=== PATIENT | female | born 2000 | race Caucasian/White ===

== ENCOUNTER 2022-07-14 20:39 | Emergency (ER) | payer MEDICAID, OTHER ==
[~2022-07-14] VITALS: Ht 162 cm; Wt 54.7 kg
[2022-07-14 20:45] VITALS: BP 126/80
--- NOTE | 2022-07-14 20:57 | ED General ---
General Chief Complaint: OB > 20 WEEKS Stated Complaint: OB,VOMITING,HEADACHE Nursing Triage Note: patient states preg. 15 weeks. states headache and vomitting. tried tylenol, vomitted it up. History of Present Illness Date Seen by Provider: Jul 14, 2022 Time Seen by Provider: 20:50 Initial Comments 22-year-old female who is a primigravida, with PMH of migraine headaches, is here with complaints of migraine headache and nausea and vomiting which began today morning. Patient had breakfast but she has been vomiting all day and has not been able to keep down any water and is also associated with not eating all day. Patient took her vitamins in the morning denies fever and chills, shortness of breath, pain, diarrhea Allergies and Home Medications Allergies Coded Allergies: No Known Drug Allergies (Unverified , 07/14/22) Patient Home Medication List Home Medication List Reviewed: Yes Review of Systems Review of Systems Constitutional: no symptoms reported EENTM: no symptoms reported Respiratory: no symptoms reported Cardiovascular: no symptoms reported Gastrointestinal: loss of appetite, nausea, vomiting Genitourinary: no symptoms reported Musculoskeletal: no symptoms reported Skin: no symptoms reported Psychiatric/Neurological: Headache Hematologic/Lymphatic: No Symptoms Reported Immunological/Allergic: no symptoms reported Physical Exam Vital Signs Vital Signs - First Documented 07/14/22 20:45 Temp 35.9 Pulse 84 Resp 20 B/P (MAP) 126/80 (95) Pulse Ox 99 O2 Delivery Room Air Capillary Refill : Less Than 3 Seconds Height, Weight, BMI Height: '" Weight: lbs. oz. kg; 20.00 BMI Method: General Appearance: Mild Distress, Thin HEENT: PERRL/EOMI, Normal ENT Inspection Neck: Full Range of Motion, Normal Inspection Respiratory: Lungs Clear, Normal Breath Sounds Cardiovascular: Regular Rate, Rhythm Gastrointestinal: Normal Bowel Sounds, Non Tender, Soft Back: No CVA Tenderness Extremity: Normal Range of Motion Neurologic/Psychiatric: Alert, Oriented x3, No Motor/Sensory Deficits Skin: Normal Color Progress/Results/Core Measures Suspected Sepsis SIRS Temperature: Pulse: 84 Respiratory Rate: 20 Blood Pressure 126 /80 Mean: 95 Results/Orders My Orders Orders - REID MURCIA MD Ed Iv/Invasive Line Start (07/14/22 20:59) Ns Iv 1000 Ml (Sodium Chloride 0.9%) (07/14/22 21:00) Ondansetron Injection (Zofran Injectio (07/14/22 21:00) Diphenhydramine Injection (Benadryl Inje (07/14/22 21:00) Acetaminophen Tablet (Tylenol Tablet) (07/14/22 21:15) Diphenhydramine Injection (Benadryl Inje (07/14/22 21:06) Ondansetron Injection (Zofran Injectio (07/14/22 21:06) Ns Iv 1000 Ml (Sodium Chloride 0.9%) (07/14/22 21:06) Rx-Ondansetron Po (Rx-Zofran Po) (07/14/22 21:45) Medications Given in ED Current Medications Medications Dose Ordered Sig/Natali Route Start Time Stop Time Status Last Admin Dose Admin Ondansetron HCl 4 mg ONCE ONCE IVP 07/14/22 21:00 07/14/22 21:07 DC 07/14/22 21:10 4 MG Ondansetron HCl 4 mg STK-MED ONCE .ROUTE 07/14/22 21:06 07/14/22 21:09 DC 07/14/22 21:11 4 MG Vital Signs/I&O 07/14/22 20:45 Temp 35.9 Pulse 84 Resp 20 B/P (MAP) 126/80 (95) Pulse Ox 99 O2 Delivery Room Air Capillary Refill : Less Than 3 Seconds Blood Pressure Mean: 95 Progress Note : Progress Note 1. MIGRAINE IN WITH VOMITING/ PO INTOLERANCE: - NS IVF bolus/ Zofran 4mg iv / Benadryl iv/ Tylenol 1gm STAT. Pt's symptoms resolved - Informed pt on newer studies done on Tylenol use in showed 20% higher risk of autism and a 30% higher risk of ADHD for children who had prolonged exposure to acetaminophen during development. Short term use, of less than 8 days, or single use does not produce these results. Pt is informed and agrees to have Tylenol at this time. - Advised pt to make sure she is eating mini meals throughout the day to prevent nausea - Advised good hydration - Prescription for Zofran as needed for nausea and vomiting - Follow up with OB within 7 days. Call to make appointment. -The patient was seen in the ED, and treated appropriately to presentation at a specific point in time. Patient is informed that there is a possibility that disease and illness can evolve and change in acuity rapidly or slowly after patient is discharged from the ER. Precautionary advice given to the patient for immediate return to ER if symptoms worsen or do not resolve, and to seek emergency care sooner rather than later. Pt also advised on the importance of PCP follow up and compliance with management and follow up plan with PCP and/or specialist, as this is part of the management plan. Pt verbally expressed understanding. Departure Impression Primary Impression: Migraine Qualified Codes: G43.909 - Migraine, unspecified, not intractable, without status migrainosus Additional Impression: Nausea and vomiting in Disposition: HOME, SELF-CARE Condition: Improved Departure-Patient Inst. Patient Instructions: Nausea and Vomiting of , Migraines in Adults, Home Headache Remedies Add. Discharge Instructions: - Advised to eat mini meals throughout the day to prevent nausea - Advised good hydration - Prescription for Zofran as needed for nausea and vomiting - Continue vitamins. - Follow up with OB within 7 days. Call to make appointment. All discharge instructions reviewed with patient and/or family. Voiced understanding. Scripts Ondansetron (Ondansetron Odt) 4 Mg Tab.rapdis 4 MG SL Q6H PRN for NAUSEA/VOMITING for 3 Days, #6 TAB Prov: REID MURCIA MD 07/14/22 REID MURCIA MD Jul 14, 2022 20:57
[2022-07-14] MEDS ORDERED: NS IV 1000 ML 1,000 ML IV SCH (21:00)
[2022-07-14] MEDS ORDERED: diphenhydrAMINE 50 MG/ML INJ (BENADRYL) IV STA (21:00)
[2022-07-14] MEDS ORDERED: ONDANSETRON 4 MG/2 ML (SDV) Z0FRAN IVP ONE (21:00)
[2022-07-14] MEDS ORDERED: NS IV 1000 ML 1,000 ML ONE (21:06)
[2022-07-14] MEDS ORDERED: ONDANSETRON 4 MG/2 ML (SDV) Z0FRAN ONE (21:06)
[2022-07-14] MEDS ORDERED: diphenhydrAMINE 50 MG/ML INJ (BENADRYL) ONE (21:06)
[2022-07-14] MEDS ORDERED: ACETAMINOPHEN 500 MG TAB (TYLENOL) PO ONE (21:15)
[2022-07-14] MEDS ORDERED: RX-ONDANSETRON 4 MG ODT (ZOFRAN) PPK #4 PO PRN (21:45)
[2022-07-14] MEDS ORDERED: ONDA4TAB11 SL (22:01)
== END 2022-07-14 22:11 | disposition home or self-care (01) ==
LOC: ER FS 20:41
DX: O99.352 Diseases of the nervous system complicating pregnancy, second trimester (principal); G43.909 Migraine, unspecified, not intractable, without status migrainosus; Z28.310 Unvaccinated for COVID-19; Z3A.15 15 weeks gestation of pregnancy

== ENCOUNTER 2022-10-30 07:15 | Outpatient (CLI) | payer OTHER, MEDICAID ==
[~2022-10-30] VITALS: Ht 160 cm; Wt 68.8 kg
[~2022-10-30 07:15] MED LIST: ONDA4TAB11 SL
[2022-10-30 07:40] VITALS: BP 118/67
[2022-10-30] MEDS ORDERED: PREN-37 PO (08:10)
[2022-10-30 08:12] VITALS: BP 118/67
[2022-10-30 08:13] LABS: CLARITY,URINE BLOODY; COLOR,URINE RED
[2022-10-30 08:14] LABS: GLUCOSE, URINE (UA) NEGATIVE (NEGATIVE); KETONES,URINE NEGATIVE (NEGATIVE); NITRITE,URINE NEGATIVE (NEGATIVE); PROTEIN,URINE 3+ (NEGATIVE)
[2022-10-30 08:15] LABS: BACTERIA,URINE FEW /HPF; BILIRUBIN,URINE 2+ (NEGATIVE); LEUKOCYTE ESTERASE ,URINE 2+ (NEGATIVE); RBC,URINE TNTC /HPF
[2022-10-30] MEDS ORDERED: cefTRIAXone 500 MG VIAL IV/IM IM ONE (08:30)
[2022-10-30] MEDS ORDERED: LIDOCAINE 1% INJ 20 ML VIAL INJ ONE (08:30)
[2022-10-30] MEDS ORDERED: LIDOCAINE 1% INJ 10 ML VIAL ONE (09:29)
[2022-10-30] MEDS ORDERED: CEFD300C3 PO (10:34)
--- NOTE | 2022-10-30 11:53 | Diagnostic Imaging Report ---
INDICATION: Vaginal bleeding. 30 weeks . TECHNIQUE: Multiple real-time grayscale images were obtained over the gravid uterus. COMPARISON: None FINDINGS: Single live intrauterine gestation is visualized in cephalic presentation. heart tones measure 125 bpm. The placenta is anterior and not low lying. The STEPHANIE is normal measuring 9.1 cm. The cervix is closed and measures 3.9 cm in length. The kidneys, bladder, stomach, brain, four-chamber heart, three-vessel cord, spine, and cord insertion are visualized and have a normal appearance. Views of the adnexa demonstrate no evidence of mass or fluid. Biometrical measurements are as follows: Biparietal 7.52 cm, age 30 weeks 2 days. Head circumference 27.35 cm, age 30 weeks 0 days. Abdominal circumference 25.85 cm, age 30 weeks 1 days. Femur length 6.27 cm, age 32 weeks 4 days. Sonographic estimate age: 30 weeks 6 days. Sonographic estimated date of delivery: 01/02/23. heart rate: 125 beats per minute. number: 1 of 1. IMPRESSION: 1. Single live intrauterine gestation measuring 30 weeks 6 days and estimated due date of 01/02/2023. These are within range clinical dates. No acute sonographic abnormalities are identified. Dictated by: Dictated on workstation # [id number]
--- NOTE | 2022-11-02 08:53 | Physician Query-Final Dx ---
LINUS,11/02/22 0853: Clinic Account Progress/Dx Physician Query: Please give diagnosis Please include # weeks gestation Date of Service Oct 30, 2022 at 07:15 MADELINE MITCHELL MD 11/23/22 1114: Clinic Account Progress/Dx DIAGNOSIS: Diagnosis Third Trimester 30 week gestation Vaginal bleeding in LINUS,MarNov 02, 2022 08:53 MADELINE MITCHELL MD Nov 23, 2022 11:14
== END 2022-10-30 12:10 | disposition home or self-care (01) ==
LOC: LDRP 07:15 → WSo 07:15
PROVIDERS: ATTEND Family Medicine
DX: O46.93 Antepartum hemorrhage, unspecified, third trimester (principal); Z3A.30 30 weeks gestation of pregnancy
CPT/HCPCS: 76805; 81000; 87088; 96372; G0463; 99213

== ENCOUNTER 2023-01-06 18:02 | Inpatient (IN) | payer OTHER, MEDICAID ==
[~2023-01-06] VITALS: Ht 160 cm; Wt 57.3 kg
[~2023-01-06 18:02] MED LIST changes: +CEFD300C3 PO; +PREN-37 PO
--- OUTSIDE RECORDS SUMMARY | 2023-01-06 18:07 | XMS REPORT ---
Author Author [facility] ter of [facility] ter of [place] Address Unknown Phone Unavailable Care Team Providers Care Geoduck Diver Name Role Phone AYUSH VERNON Unavailable PROBLEMS Type Condition ICD9-CM Code MCM97-FT Code Onset Dates Condition Status W/U Status Risk SNOMED Code Notes Problem Seasonal allergic rhinitis due to pollen J30.1 confirmed [id number] Problem Dysmenorrhea N94.6 confirmed [id number] Problem Abnormal menses N92.6 confirmed [id number] ALLERGIES No Known Allergies ENCOUNTERS from 2001 to 2022-08-01 Encounter Location Date Provider Diagnosis [facility] [address] [id number] [address] July, AYUSH VERNON UTI symptoms R39.9 ; Abnormal menses N92.6 and Complicated UTI (urinary tract infection) N39.0 SOCIAL HISTORY Sex Assigned At : Social History Observation Description Sex Assigned At Unknown Alcohol Screen (Audit-C) Question Answer Notes Did you have a drink containing alcohol in the p ast year? No Points 0 Interpretation Negative Cessation Question Answer Notes Date Tobacco Cessation Provided: 05/12/2022 Sexual History Question Answer Notes Had sex in the past 12 months (vaginal, oral, or anal)? Yes Last menstrual period 05/04/2022 Have you ever had a Sexually transmitted disease ? No with Men only Use protection? No PHQ2 Question Answer Notes In the last 2 weeks, how oft en have you had little interest or pleasure in doing things? Not at all In the last 2 weeks, how oft en have you been feeling down, depressed, or hopeless? Not at all Total PHQ2 Score 0 Tobacco use other than smoking: Question Answer Notes Are you an other tobacco user? Yes REASON FOR REFERRAL No Information VITAL SIGNS Height 63.5 in July, Height-cm 161.29 cm July, Weight 119 lbs July, Weight-kg 53.98 kg July, Temperature 98.5 degrees Fahrenheit July, Heart Rate 85 bpm July, Respiratory Rate 18 bpm July, Oximetry 98 % July, BMI 20.75 kg/m2 July, Blood pressure systolic 121 mmHg July, Blood pressure diastolic 70 mmHg July, MEDICATIONS Medication SIG (Take, Route, Fr equency, Duration) Notes Start Date End Date Status Vitamin B-6 100 MG 1 tablet Orally Once a day Active Phenergan 25 MG/ML Inject 25 mg (1 ml) Intramuscularly one time for 1 days May, Active Doxylamine Succinate Active 28-0.8 MG 1 tablet Orally Once a day Active REASON FOR VISIT lower right flank/hip pain, no known injury, lower abdominal pain, loss of appetite, burning and pain while urinating, frequent urination x3 days. Patient has taken one dose of Ibuprofen for symptoms.Suraj MA MEDICAL (GENERAL) HISTORY Type Description Date Medical History seasonal allergies MENTAL STATUS No Information ASSESSMENTS Encounter Date Diagnosis Assessment Notes Treatment Notes Treatment Clinical Notes July, UTI symptoms (ICD-10 - R39.9) Treating based on PE & urine results. Culture to follow. July, Abnormal menses (ICD-10 - N92.6) Negative UPT. July, Complicated UTI (urinary tract infection) (ICD-10 - N39.0) Treating for complicated UTI given reports of nausea & CVA tenderness on PE. Medications as prescribed, rest as able, push fluids, call/return if symptoms worsen or do not improve. Adult UTI: 1. Avoid bubble baths. Voiding after sexual intercourse for adult females will assist to flush potential bacteria from the urinary tract. Proper bathroom hygein wiping front to bacl. Maintain proper hydration with lots of water daily avoiding sodas as able. Pushing fluids helps to maintain hydration and flush urinary system. PLAN OF TREATMENT Treatment Notes Assessment Notes Clinical Notes UTI symptoms Treating based on PE & urine results. Culture to follow. Abnormal menses Negative UPT. Complicated UTI (urinary tra ct infection) Treating for complicated UTI given reports of nausea & CVA tenderness on PE. Medications as prescribed, rest as able, push fluids, call/return if symptoms worsen or do not improve. Adult UTI: 1. Avoid bubble baths. Voiding after sexual intercourse for adult females will assist to flush potential bacteria from the urinary tract. Proper bathroom hygein wiping front to bacl. Maintain proper hydration with lots of water daily avoiding sodas as able. Pushing fluids helps to maintain hydration and flush urinary system. Next Appt Details if not improving or regular follow up with pcp Reason: Provider Name:MADELINE RAMIREZJOSIE, 2 023-05-15 04:00:00 PM, [address] [place], [address], Insurance Providers Payer Name Payer Address Payer Phone Insured Name Patient Relationship to Insured Coverage Start Date Coverage End Date Subscriber Number Group Number [employer] [address] [address] [facility] [id number] Josselyn Rubin Self - patient is the insured 2 [id number] [employer] [address] [facility] [address] Josselyn Rubin Self - patient is the insured [id number] MEDICATIONS ADMINISTERED Medication Instructions Date of Administration Dosag e Promethazine HCl May, 25 mg
--- OUTSIDE RECORDS SUMMARY | 2023-01-06 18:07 | XMS REPORT ---
Author Author [facility] ter of [facility] ter of [facility] Address Unknown Phone Unavailable Care Team Providers Care Patient Financial Counselor Name Role Phone AYUSH VERNON Unavailable PROBLEMS ALLERGIES No Known Allergies ENCOUNTERS from 2001 to 2022-09-30 SOCIAL HISTORY No smoking Hx information available REASON FOR REFERRAL No Information VITAL SIGNS MEDICATIONS REASON FOR VISIT MEDICAL (GENERAL) HISTORY MENTAL STATUS ASSESSMENTS PLAN OF TREATMENT Insurance Providers MEDICATIONS ADMINISTERED
[2023-01-06 19:24] VITALS: BP 126/77
[2023-01-06 19:28] LABS: BASOPHILS % (AUTO) 0 % (0-10); EOSINOPHILS % (AUTO) 0 % (0-10); HEMATOCRIT 37 % (35-52); HEMOGLOBIN 12.7 g/dL (11.5-16.0); LYMPHOCYTES # (AUTO) 1.9 10^3/uL (1.0-4.0); LYMPHOCYTES % (AUTO) 20 % (12-44); MEAN CORPUSCULAR HEMOGLOBIN 31 pg (25-34); MEAN CORPUSCULAR HGB CONC 35 g/dL (32-36); MEAN CORPUSCULAR VOLUME 89 fL (80-99); MEAN PLATELET VOLUME 11.3 fL (9.0-12.2); MONOCYTES # (AUTO) 0.6 10^3/uL (0.0-1.0); MONOCYTES % (AUTO) 6 % (0-12); NEUTROPHILS # (AUTO) 7.1 10^3/uL (1.8-7.8); NEUTROPHILS % (AUTO) 73 % (42-75); PLATELET COUNT 200 10^3/uL (130-400); WHITE BLOOD COUNT 9.8 10^3/uL (4.3-11.0)
[2023-01-06] MEDS ORDERED: LACTATED RINGERS 1,000 ML 500 ML IV PRN (19:30)
[2023-01-06] MEDS ORDERED: LIDOCAINE 2% w/EPI 1:200,000 20 ML VIAL INJ PRN (19:30)
[2023-01-06] MEDS ORDERED: MINERAL OIL 30 ML UDC TOP PRN (19:30)
[2023-01-06] MEDS ORDERED: TERBUTALINE INJ 1 MG/ML (BRETHINE) AMP SC PRN (19:45)
[2023-01-06] MEDS ORDERED: NS IV 500 ML 500 ML IV SCH (19:45)
[2023-01-06] MEDS: D5 LR 1,000 ML IV SOLN 1,000 ML IV SCH (19:54)
[2023-01-06 20:05] LABS: AMORPHOUS SEDIMENT,UR FEW AMOR PHOSPHATE /LPF; BACTERIA,URINE FEW /HPF; BILIRUBIN,URINE NEGATIVE (NEGATIVE); CLARITY,URINE CLEAR; COLOR,URINE YELLOW; GLUCOSE, URINE (UA) NEGATIVE (NEGATIVE); KETONES,URINE NEGATIVE (NEGATIVE); LEUKOCYTE ESTERASE ,URINE 1+ (NEGATIVE); NITRITE,URINE NEGATIVE (NEGATIVE); PROTEIN,URINE NEGATIVE (NEGATIVE); RBC,URINE 0-2 /HPF; SQUAMOUS EPITHELIAL CELL,UR >50 /HPF
[2023-01-06] MEDS ORDERED: CATHETER FLUSH 10 ML SYR IV SCH (22:00)
[2023-01-06 23:55] VITALS: BP 114/57
[2023-01-07] VITALS (24 sets, daily range): BP systolic 95–140; BP diastolic 51–92
[2023-01-07] MEDS: D5 LR 1,000 ML IV SOLN 1,000 ML IV SCH (03:37)
[2023-01-07] MEDS ORDERED: BUTORPHANOL INJ 2 MG/ML VIAL IV PRN ×2 (03:45→08:00)
[2023-01-07] MEDS ORDERED: BUTORPHANOL INJ 2 MG/ML VIAL ONE (03:50)
[2023-01-07] MEDS ORDERED: ONDANSETRON INJECTION 4 MG/2 ML (SDV) ONE ×2 (03:59→13:06)
[2023-01-07] MEDS ORDERED: ONDANSETRON INJECTION 4 MG/2 ML (SDV) IVP ONE (04:00)
[2023-01-07] MEDS ORDERED: fentaNYL 2 mcg/ml BUPIVA 0.125 100 ML ONE (09:55)
[2023-01-07] MEDS ORDERED: fentaNYL INJECTION 100 MCG/2 ML VIAL ONE (10:20)
[2023-01-07] MEDS ORDERED: BUPIVACAINE 0.25% 10 ML VIAL ONE (10:20)
[2023-01-07] MEDS ORDERED: ONDANSETRON INJECTION 4 MG/2 ML (SDV) IV PRN (10:30)
[2023-01-07] MEDS ORDERED: fentaNYL 2 mcg/ml BUPIVA 0.125 100 ML EPI SCH (10:30)
[2023-01-07] MEDS ORDERED: CATHETER FLUSH 10 ML SYR IV PRN (10:30)
[2023-01-07] MEDS ORDERED: NALOXONE 0.4 MG/ML 1 ML VIAL IV PRN ×2 (10:30→13:00)
[2023-01-07] MEDS ORDERED: LACTATED RINGERS 1,000 ML 1,000 ML IV ONE (10:30)
[2023-01-07] MEDS ORDERED: diphenhydrAMINE INJ 50 MG/ML VIAL IV PRN (10:30)
[2023-01-07] MEDS ORDERED: CITRIC ACID/SODIUM CITRATE ORAL SOLN 30 ML ONE (12:05)
[2023-01-07] MEDS ORDERED: METOCLOPRAMIDE INJ 10 MG/2 ML ONE (12:05)
[2023-01-07] MEDS ORDERED: FAMOTIDINE INJ 20MG/2ML VIAL ONE (12:06)
[2023-01-07] MEDS ORDERED: LIDOCAINE PF 2% 5 ML VIAL ONE ×3 (12:11→13:09)
[2023-01-07] MEDS ORDERED: NS (IVPB) 50 ML 50 ML ONE (12:19)
[2023-01-07] MEDS ORDERED: ceFAZolin INJECTION 2,000 MG ONE (12:19)
[2023-01-07] MEDS ORDERED: KETAMINE 100 MG/ML 5 ML VIAL ONE (12:25)
[2023-01-07] MEDS ORDERED: KETAMINE 50 MG/5 ML SYRINGE ONE (12:25)
--- NOTE | 2023-01-07 12:59 | Labor Progress Note ---
Labor Progress Note Labor Progress Note Date Seen by Provider: Jan 07, 2023 Time Seen by Provider: 11:30 Subjective: Pt denies complaints. Objective: Cervical exam: /-2 Consistency: soft Position: Anterior Presentation: Vertex heart tones: 120 beats per minute, moderate variability, reactive Tocometer: 4 ctx/10 minutes Assessment/Plan: Neelam Carney is a 22 /Para 1/0 ,Gestational Age 40w2d here for induction of labor. Patient of Dr. Borrego's being induced, received one dose of cytotec last night and has been regis well since, recently got epidural, ready for AROM. See timeline below: 1132: AROM done, heart tones 120s at time of rupture. 1135: I returned to room, heart tones difficult to trace, but sounded to be in the 60s 1137: Picked up heart tones in 120-130s 1140: Scalp lead placed and heart rate initially high, but rapidly dropped, had deceleration from 60-100 for about 3.5 minutes, then recoved to 120s with good variability 1146: Called and notified Cigarette Catcher concrete buster operator about recurrent decelerations, currently reassuring but concerning if persistent recurrent decelerations 1150: Recurrent deceleration to 80s for 2 minutes with contraction, recovered to 120s with moderate variability 1156: Recurrent deceleration to carlos enrique of 60s, lasted 2.5 minutes with contraction, then recovered to 120s with moderate variability. 1158: Repeat cervical exam by me, remains /-2, no prolapsed cord. 1203: Discussed again with Cigarette Catcher concrete buster operator, currently with recurrent deceleration to 70s for 3 minutes, up to 110 for about 1 min then down to 70 to 80 again with slow return over a minute to 120s, again with contraction, at this time decided to proceed with emergent . 1209: To OR. Vitals - Labs Vital Signs - I&O Vital Signs Date Time Temp Pulse Resp B/P (MAP) Pulse Ox O2 Delivery O2 Flow Rate FiO2 01/07/23 10:56 74 18 115/73 (87) 96 Room Air 01/07/23 10:52 66 18 106/70 (82) 98 Room Air 01/07/23 10:47 82 18 114/69 (84) 98 Room Air 01/07/23 10:44 52 18 121/70 (87) 97 Room Air 10/12/23 10:42 49 18 128/65 (86) 97 Room Air 01/07/23 10:37 67 18 139/85 (103) Room Air 01/07/23 10:34 66 18 139/88 (105) 97 Room Air 01/07/23 10:32 71 18 140/81 (100) Room Air 01/07/23 10:29 66 18 127/82 (97) 98 Room Air 01/07/23 03:40 36.2 66 18 130/88 (102) 100 Room Air 01/06/23 23:55 36.5 59 18 114/57 (76) 97 Room Air 01/06/23 19:24 36.5 89 16 97 Room Air I & O 01/07/23 07:00 Intake Total 1470 ml Balance 1470 ml Labs Laboratory Tests 01/06/23 18:15: Urine Color YELLOW, Urine Clarity CLEAR, Urine pH 7.0, Urine Specific Victoria 1.020, Urine Protein NEGATIVE, Urine Glucose (UA) NEGATIVE, Urine Ketones NEGATIVE, Urine Nitrite NEGATIVE, Urine Bilirubin NEGATIVE, Urine Urobilinogen 0.2, Urine Leukocyte Esterase 1+H, Urine RBC (Auto) NEGATIVE, Urine RBC 0-2, Urine WBC 2-5, Urine Squamous Epithelial Cells >50H, Urine Crystals PRESENTH, Urine Amorphous Sediment FEW BREONNA PHOSPHATEH, Urine Bacteria FEWH, Urine Casts NONE, Urine Mucus MODERATEH, Urine Culture Indicated NO 01/06/23 18:40: White Blood Count 9.8, Red Blood Count 4.11, Hemoglobin 12.7, Hematocrit 37, Mean Corpuscular Volume 89, Mean Corpuscular Hemoglobin 31, Mean Corpuscular Hemoglobin Concent 35, Red Cell Distribution Width 12.3, Platelet Count 200, Mean Platelet Volume 11.3, Immature Granulocyte % (Auto) 1, Neutrophils (%) (Auto) 73, Lymphocytes (%) (Auto) 20, Monocytes (%) (Auto) 6, Eosinophils (%) (Auto) 0, Basophils (%) (Auto) 0, Neutrophils # (Auto) 7.1, Lymphocytes # (Auto) 1.9, Monocytes # (Auto) 0.6, Eosinophils # (Auto) 0.0, Basophils # (Auto) 0.0, Immature Granulocyte # (Auto) 0.1, Syphilis Total Antibody Negative MANDY SOMERS MD Jan 07, 2023 12:59
[2023-01-07] MEDS ORDERED: MEASLES, MUMPS, RUBELLA VACCINE (MMR) SC SCH (13:00)
[2023-01-07] MEDS ORDERED: OXYTOCIN DRIP PRE-MIX 500 ML IV SCH (13:00)
[2023-01-07] MEDS ORDERED: ONDANSETRON INJECTION 4 MG/2 ML (SDV) IVP PRN (13:00)
[2023-01-07] MEDS ORDERED: Tetanus/Diphtheria/Pertussis (Acell) ADULT Vaccine 0.5 ML IM SCH (13:00)
[2023-01-07] MEDS ORDERED: IBUP-844 PO (13:03)
[2023-01-07] MEDS ORDERED: DOCU100C37 PO (13:03)
[2023-01-07] MEDS ORDERED: ACHD5005 PO (13:03)
--- NOTE | 2023-01-07 13:03 | Discharge Inst-Women's Service ---
Discharge Inst-Women's Serv Depart Medication/Instructions New, Converted or Re-Newed RX: Transmitted to Pharmacy Final Diagnosis POD 2 PLTCS Problems Reviewed?: Yes Consults/Follow Up Additional Follow Up: Yes Orders/Referrals Dr. Castellanos in 7-10 days and in 6 weeks Activity Activity: Activity as Tolerated Driving Instructions: No Driving for 1 Week NO SMOKING: NO SMOKING Nothing Inside Vagina: No Douching, No [place], No Tampons Diet Discharge Diet: No Restrictions Symptoms to Report to : Bleeding Excessive, Pain Increased, Fever Over 101 Degrees F, Vaginal Bleeding Increase, Questions/Concerns For Any Problems or Questions: Contact Your Physician Skin/Wound Care Infection Signs and Symptoms: Increased Redness, Foul Odor of Wound, Increased Drainage, Skin Itchy or Has a Rash, Increased Swelling, Temperature Above 101 F Operative Area Clean and Dry: Keep Incision Clean/Dry Stitches/[place]/Dermabond: Dermabond, Care of Stitches Bathing Instructions: DELMAR Aden DO Jan 07, 2023 13:03
[2023-01-07] MEDS ORDERED: proPOfol INJECTION 200 MG/20 ML VIAL IV ONE (13:04)
[2023-01-07] MEDS ORDERED: SUCCINYLCHOLINE INJ 20 MG/1 ML 10 ML VIAL ONE (13:04)
[2023-01-07] MEDS ORDERED: BUPIVACAINE 0.5% 30 ML VIAL ONE (13:09)
--- NOTE | 2023-01-07 13:13 | Diagnostic Imaging Report ---
INDICATION: Abdominal pain. FINDINGS: The bowel gas pattern is nonspecific. There is a partially imaged wire-like foreign body overlying the mid epigastrium. This is of uncertain etiology. This may be external to the patient. There are no abnormal abdominal calcifications. The osseous structures are unremarkable. IMPRESSION: Nonspecific bowel gas pattern. Nonspecific wire-like foreign body overlying the mid epigastrium. Again, it is uncertain if this is within the patient or external to the patient. Recommend clinical correlation. Dictated by: Dictated on workstation # [id number]
[2023-01-07] MEDS: KETOROLAC INJ 30 MG/ML VIAL IV SCH ×2 (13:37→19:46)
[2023-01-07] MEDS ORDERED: METOCLOPRAMIDE INJ 10 MG/2 ML IV ONE (14:45)
[2023-01-07] MEDS ORDERED: CITRIC ACID/SODIUM CITRATE ORAL SOLN 30 ML PO ONE (14:45)
[2023-01-07] MEDS ORDERED: LACTATED RINGERS 1,000 ML 1,000 ML IV PRN (14:45)
[2023-01-07] MEDS ORDERED: FAMOTIDINE INJ 20MG/2ML VIAL IV ONE (14:45)
--- NOTE | 2023-01-07 18:52 | OPERATIVE REPORT ---
PREOPERATIVE DIAGNOSES: 1. A 22-year-old G1, P0 at 40 weeks gestation. 2. Acute distress and intolerance of labor. POSTOPERATIVE DIAGNOSES: 1. A 22-year-old G1, P0 at 40 weeks gestation. 2. Acute distress and intolerance of labor. PROCEDURE: Emergency primary low-transverse section. SURGEON: John Castellanos DO ANESTHESIA: Epidural, which was bolused with IV ketamine given as well. ESTIMATED BLOOD LOSS: 800 mL FLUID: 900 mL of lactated Ringer's solution. URINE OUTPUT: Urine is 150 mL clear at end of procedure. FINDINGS: A live female infant, weight pending, Apgars of 9 and 9. Grossly normal appearing uterus, bilateral fallopian tubes and ovaries. SPECIMEN SENT: Placenta. INDICATIONS FOR PROCEDURE: I was contacted urgently by Dr. Mary Carter for acute distress of an induction of labor she had for postdates. I was told that the heart rate was in the 70s-80s and she was taken urgently back to the room hours as I arrived. She was being prepped, consent had been obtained and she was agreeable to proceed with the procedure. heart rate was still noted to be in the 90s. I then tested anesthesia and proceeded with making a low transverse incision with a knife and carried underlying fascia using Bovie cautery. The fascial incision was extended laterally using traction. The midline of the rectus muscles are dissected bluntly using traction. I then entered the peritoneum, bluntly and extended using blunt traction. Yasir ring retractor was placed in the peritoneal incision, which offers excellent lateral sidewall retraction. I identified lower uterine segment, was found to be thinned out and make a low transverse incision to the vesicouterine peritoneum and bluntly dissected off the lower uterine segment, creating a bladder flap. I then proceeded my myotomy until membranes were visualized, at which point I extended uterine incision using gentle traction. The infant was found in vertex presentation. With gentle fundal pressure, the infant's head was elevated up the incision where the nares and oropharynx were bulb suctioned. Anterior and posterior shoulders were delivered. The infant was brought to the operative field where cords were clamped and cut and infant was handed off to waiting Dr. Carter and Dr. Borrego who are attending the delivery. Cord blood was collected. Three-vessel cord intact placenta was delivered spontaneously thereafter. IV Pitocin was initiated to facilitate uterine contraction. Uterine fundus confirmed by manual massage. The uterus was then exteriorized and cleared of all endometrial clots and debris. I then proceeded with closing the uterine incision using 0 Vicryl suture in a running locked fashion. Second layer of imbricating 0 Monocryl was placed. Excellent hemostasis was noted after doing this. I then placed the uterus back in the pelvis and copiously irrigated the pelvis using normal saline. Once again, there was no active bleeding noted from any of my dissection planes. I placed Interceed antiadhesive over my low transverse incision. I then removed the Yasir ring retractor and then proceeded with closing the peritoneum using 3-0 Vicryl suture in a running fashion. Rectus muscles were reapproximated using 3-0 Vicryl suture in interrupted fashion. The fascia was reapproximated using 0 Vicryl suture in a running fashion and the skin reapproximated using 4-0 Monocryl in a running subcuticular. Dermabond was applied. Incision, sterile dressing with adhesive white tape. The patient tolerated the procedure well and sent to recovery area in stable condition. Lap and sponge count was not done prior to the procedure and instrument count was not done as well; therefore, flat plate x-ray was found to be negative after the procedure was completed for any type of retained laps or instruments. Two grams of Ancef were given intraoperatively for infection prophylaxis. Job ID: [id number] DocumentID: [id number] Dictated Date: 01/07/2023 12:58:35 Program Engagement Director Date: 01/07/2023 18:49:00 Dictated By: DO DOC SOSA
[2023-01-07] MEDS: METOCLOPRAMIDE 10 MG TABLET PO SCH (19:22)
[2023-01-07] MEDS: DOCUSATE SODIUM 100 MG CAPSULE PO SCH (19:47)
[2023-01-07] MEDS: HYDROcodone/ACETAMINOPHEN 5 MG/325 MG TABLET PO PRN (22:08)
[2023-01-08] MEDS: METOCLOPRAMIDE 10 MG TABLET PO SCH ×4 (00:40→18:31)
[2023-01-08] MEDS: KETOROLAC INJ 30 MG/ML VIAL IV SCH ×2 (02:12→10:46)
[2023-01-08 03:54] VITALS: BP 121/73
[2023-01-08] MEDS: HYDROcodone/ACETAMINOPHEN 5 MG/325 MG TABLET PO PRN ×4 (03:55→23:07)
[2023-01-08 06:11] LABS: BASOPHILS % (AUTO) 0 % (0-10); EOSINOPHILS % (AUTO) 0 % (0-10); HEMATOCRIT 27 % (35-52); LYMPHOCYTES # (AUTO) 1.3 10^3/uL (1.0-4.0); LYMPHOCYTES % (AUTO) 13 % (12-44); MEAN CORPUSCULAR HEMOGLOBIN 31 pg (25-34); MEAN CORPUSCULAR HGB CONC 34 g/dL (32-36); MEAN CORPUSCULAR VOLUME 90 fL (80-99); MEAN PLATELET VOLUME 11.2 fL (9.0-12.2); MONOCYTES # (AUTO) 0.8 10^3/uL (0.0-1.0); MONOCYTES % (AUTO) 7 % (0-12); NEUTROPHILS # (AUTO) 8.4 10^3/uL (1.8-7.8); NEUTROPHILS % (AUTO) 79 % (42-75); PLATELET COUNT 153 10^3/uL (130-400); WHITE BLOOD COUNT 10.6 10^3/uL (4.3-11.0)
--- NOTE | 2023-01-08 07:48 | Postpartum Progress Note ---
REMEDIOS ARGUETA MD,RESIDENT 01/08/23 0748: Post Op Post-operative Day #1 Subjective: Patient is without complaints. Ambulating, voiding after yang removed. Tolerating a regular diet without nausea or vomiting. Normal lochia. Pain is well controlled with oral pain medications. Passing flatus. [] feeding. [] Objective: Physical Exam: General - Alert and oriented, no apparent distress Abdomen - Soft, appropriately tender to palpation, non-distended, fundus firm at umbilicus Incision - clean, dry and intact; no erythema or induration, no drainage Extremities - no edema, negative Ting's bilaterally Assessment: post-operative day # 2, status post STAT primary for distress. Recovering well, hemodynamically stable Plan: Routine post-operative care. Encourage breast feeding. Encourage ambulation. VTE prophylaxis: SCDs. Ferrous sulfate supplementation. Plan for discharge POD #2 Vitals - Labs Vital Signs - I&O Vital Signs Date Time Temp Pulse Resp B/P (MAP) Pulse Ox O2 Delivery O2 Flow Rate FiO2 01/08/23 03:54 36.4 62 18 121/73 (89) 97 Room Air 01/07/23 23:34 36.2 56 18 118/64 (82) 96 Room Air 01/07/23 20:00 36.9 66 18 110/69 (83) 97 Room Air 01/07/23 16:20 37.7 81 18 132/71 (91) 97 Room Air 01/07/23 14:10 37.4 87 18 133/68 (89) 98 Room Air 01/07/23 14:00 37.5 20 134/92 (106) 99 Room Air 01/07/23 14:00 Room Air 01/07/23 14:00 Room Air 01/07/23 13:50 20 123/61 (81) 98 Room Air 01/07/23 13:40 Room Air 01/07/23 13:40 20 136/76 (96) 99 Room Air 01/07/23 13:30 22 125/85 (98) 100 Room Air 01/07/23 13:25 Room Air 01/07/23 13:15 17 138/89 (105) 100 Room Air 01/07/23 13:09 36.2 16 133/80 (97) 100 Room Air 01/07/23 13:09 Room Air 01/07/23 12:02 51 95/51 (66) 100 Room Air 01/07/23 11:42 59 140/85 (103) 99 Room Air 01/07/23 11:26 57 119/76 (90) 99 Room Air 01/07/23 11:06 57 109/58 (75) 95 Room Air 01/07/23 10:56 74 18 115/73 (87) 96 Room Air 01/07/23 10:52 66 18 106/70 (82) 98 Room Air 01/07/23 10:47 82 18 114/69 (84) 98 Room Air 01/07/23 10:44 52 18 121/70 (87) 97 Room Air 01/07/23 10:42 49 18 128/65 (86) 97 Room Air 01/07/23 10:37 67 18 139/85 (103) Room Air 01/07/23 10:34 66 18 139/88 (105) 97 Room Air 01/07/23 10:32 71 18 140/81 (100) Room Air 01/07/23 10:29 66 18 127/82 (97) 98 Room Air I & O 01/08/23 07:00 Intake Total 1300 ml Output Total 1025 ml Balance 275 ml Labs Laboratory Tests 01/08/23 05:32: White Blood Count 10.6, Red Blood Count 2.93L, Hemoglobin 9.0#L, Hematocrit 27L, Mean Corpuscular Volume 90, Mean Corpuscular Hemoglobin 31, Mean Corpuscular Hemoglobin Concent 34, Red Cell Distribution Width 12.5, Platelet Count 153, Mean Platelet Volume 11.2, Immature Granulocyte % (Auto) 1, Neutrophils (%) (Auto) 79H, Lymphocytes (%) (Auto) 13, Monocytes (%) (Auto) 7, Eosinophils (%) (Auto) 0, Basophils (%) (Auto) 0, Neutrophils # (Auto) 8.4H, Lymphocytes # (Auto) 1.3, Monocytes # (Auto) 0.8, Eosinophils # (Auto) 0.0, Basophils # (Auto) 0.0, Immature Granulocyte # (Auto) 0.1 DELMAR ALBERTS DO 01/08/23 0813: Post Op Diagnosis: Acute blood loss anemia I personally performed the garcia portions of the visit, discussed case with resident and concur with resident documentation of history, physical exam, assessment and treatment plan unless otherwise noted. REMEDIOS ARGUETA MD,RESIDENT Jan 08, 2023 07:48 DELMAR ALBERTS DO Jan 08, 2023 08:13
--- NOTE | 2023-01-08 10:03 | Anesthesia-Regional Post-Op ---
Regional Patient Condition Mental Status: Alert, Oriented x3 Circulation: Same as Pre-Op Headache: Absent Sensation: Full Recovery Motor Block: Absent Post Op Complications Complications None Follow Up Care/Instructions Patient Instructions None needed. Anesthesia/Patient Condition Patient is doing well, does C/O some pain which is to be expected, stable vital signs, no apparent adverse anesthesia problems. No complications reported per nursing. MUKUL MCKEON DO Jan 08, 2023 10:03
[2023-01-08] MEDS ORDERED: OXYTOCIN DRIP PRE-MIX 1,000 ML IV ONE (10:30)
[2023-01-08 10:45] VITALS: BP 123/71
[2023-01-08] MEDS: CATHETER FLUSH 10 ML SYR IV SCH ×2 (10:45→19:45)
[2023-01-08] MEDS: DOCUSATE SODIUM 100 MG CAPSULE PO SCH ×2 (10:46→20:10)
[2023-01-08 12:00] VITALS: BP 123/82
[2023-01-08] MEDS: IBUPROFEN 600 MG TABLET PO SCH ×2 (16:50→23:07)
[2023-01-08 16:52] VITALS: BP 125/79
[2023-01-08 23:06] VITALS: BP 120/74
[2023-01-09] MEDS: METOCLOPRAMIDE 10 MG TABLET PO SCH ×3 (00:30→11:30)
[2023-01-09 04:56] VITALS: BP 108/69
[2023-01-09] MEDS: IBUPROFEN 600 MG TABLET PO SCH ×2 (04:56→11:29)
--- NOTE | 2023-01-09 07:01 | Discharge Summary ---
REMEDIOS HUNG MD,RESIDENT 01/09/23 0701: Discharge Summary Hospital Course Problems Reviewed?: Yes Hospital Course Date of Admission: Jan 06, 2023 at 18:02 Admission Diagnosis : Family Physician/Provider: Alina Borrego MD Date of Discharge: 01/09/23 Discharge Diagnosis: Primary Hospital Course: Pt admitted for IOL at 40w2d. Received one dose of cytotec and AROM completed. Pt requested epidural for pain control. Shortly after AROM and epidural placement, FHT demonstrated distress with prolonged decels to a rate of around 70. The decision was made to undergo a STAT for the safety of mom and baby. Dr. Castellanos completed the primary resulting in a live term female. Minimal bleeding occurred operatively and Pt remained stable throughout her hospital stay. Stable for discharge on POD #2. Labs and Pending Lab Test: Home Meds Active Docusate Sodium 100 Mg Capsule 100 Mg PO BID PRN Hydrocodone-Acetamin 5-325 mg (Hydrocodone/Acetaminophen) 5 Mg-325 Mg Tablet 1-2 Ea PO Q6HR PRN Ibu (Ibuprofen) 600 Mg Tablet 600 Mg PO Q6H Cefdinir 300 Mg Capsule 300 Mg PO BID 5 Days Reported Tablet ( Vit/Iron Fumarate/FA) 27 Mg Iron-800 Mcg Tablet 1 Each PO DAILY Patient Discharge Instructions Keep surgical incision clean and dry. Follow-up in [address] Castellanos for incision check. Follow-up in 6wks for post- check-up. Activity: Activity as Tolerated Driving Instructions: No Driving for 1 Week NO SMOKING: NO SMOKING Discharge Diet: No Restrictions Symptoms to Report to : Pain Increased, Fever Over 101 Degrees F For Any Problems or Questions: Contact Your Physician, Go to Emergency Room Infection Signs and Symptoms: Increased Redness, Foul Odor of Wound, Increased Drainage, Increased Swelling, Temperature Above 101 F Operative Area Clean and Dry: Keep Incision Clean/Dry Stitches/Irina/Dermabond: Dermabond Discharge Physical Examination Allergies: Coded Allergies: No Known Drug Allergies (Unverified , 07/14/22) Vitals & I&Os Vital Signs Date Time Temp Pulse Resp B/P (MAP) Pulse Ox O2 Delivery O2 Flow Rate FiO2 01/09/23 04:56 36.1 59 16 108/69 (82) 98 Room Air General Appearance: No Apparent Distress Respiratory: Lungs Clear, Normal Breath Sounds Cardiovascular: Regular Rate, Rhythm Gastrointestinal: Normal Bowel Sounds Extremity: No Calf Tenderness, No Pedal Edema Skin: Warm/Dry, Other (Surgical incision clean and dry) Neurologic/Psychiatric: Alert, Oriented x3, Normal Mood/Affect Discharge Summary Date of Admission Jan 06, 2023 at 18:02 Date of Discharge Discharge Date: Jan 09, 2023 LIVIA APARICIO DO 01/09/23 0946: Discharge Summary Discharge Physical Examination Allergies: Coded Allergies: No Known Drug Allergies (Unverified , 07/14/22) Supervisory-Addendum Brief Verification & Attestation Participated in pt care: physical Personally performed: exam, history, supervision of care Care discussed with: other Procedures: n/a I rounded with Dr Hung this am and gave discharge instructions to REMEDIOS Bruner MD,RESIDENT Jan 09, 2023 07:01 LIVIA APARICIO DO Jan 09, 2023 09:46
[2023-01-09] MEDS: HYDROcodone/ACETAMINOPHEN 5 MG/325 MG TABLET PO PRN (08:36)
[2023-01-09] MEDS: DOCUSATE SODIUM 100 MG CAPSULE PO SCH (08:36)
== END 2023-01-09 12:05 | disposition home or self-care (01) | DRG 787 ==
LOC: LDRP 18:02
PROVIDERS: ADMIT Family Medicine; ATTEND Obstetrics & Gynecology
PROC: 10D00Z1 Extraction of Products of Conception, Low, Open Approach (ICD-10-PCS; principal; 2023-01-07 12:12)
DX: O77.9 Labor and delivery complicated by fetal stress, unspecified (principal); D62 Acute posthemorrhagic anemia; Z3A.40 40 weeks gestation of pregnancy; Z37.0 Single live birth; O90.81 Anemia of the puerperium
CPT/HCPCS: 36415; 74018; 81000; 85025; 86780; 86850; 86900; 86901; 94664